=== PATIENT | male | born 1965 | race Caucasian/White ===

== ENCOUNTER 2021-03-08 13:05 | Outpatient (CLI) | payer MEDICARE, SELFPAY | END 2021-03-08 13:06 | disposition home or self-care (01) | LOC: ANHAUDIO 13:08 | PROVIDERS: PCP Internal Medicine; Visit Provider Nurse Practitioner Family | DX: H91.93 Unspecified hearing loss, bilateral (principal) | CPT/HCPCS: 92557; 92567 ==

== ENCOUNTER 2022-08-24 08:44 | Observation (INO) | payer MEDICARE, SELFPAY ==
[2022-08-24] VITALS (21 sets, daily range): BP systolic 147–187; BP diastolic 84–99; PULSE 71–104; RESP 12–22; TEMP 36.2–36.9; O2SAT 94–97; BMI 41.5
--- NOTE | ~2022-08-24 | CT_ITS ---
EXAMINATION: CT brain wo con DATE: 08/24/2022 09:03 INDICATION: Altered mental status. TECHNIQUE: Computed tomography (CT) of the head was performed without intravenous contrast. The mA wa s adjusted according to patient size. Iterative reconstruction technique was employed. The dose-lengt h product was 681.00 mGy-cm. COMPARISON: Head CT 05/06/2013 FINDINGS: There is no intracranial hemorrhage, acute infarction, or abnormal intracranial mass lesion . The ventricles are normal in size. There is mucosal thickening in the paranasal sinuses. The orbits are normal. The mastoid air cells are normal. IMPRESSION: 1. Normal brain. Reviewed, dictated and finalized at location A. IMPRESSION: 1. Normal brain.
--- NOTE | ~2022-08-24 | CT_ITS ---
EXAMINATION: CTA brain carotid DATE: 08/24/2022 10:16 INDICATION: Stroke. Altered mental status. TECHNIQUE: Computed tomographic angiography (CTA) of the head was performed with 175 mL Omnipaque-350 intravenous contrast. CTA of the neck was performed with intravenous contrast. Automated exposure co ntrol and iterative reconstruction technique were employed. The dose-length product was 2599.53 mGy-c m. Maximum intensity projection and volume rendered 3D-reconstructions were created by the technologi st on a separate workstation. COMPARISON: Head CT 08/24/2022 FINDINGS: HEAD CTA: There is no intracranial hemorrhage, acute infarction, or abnormal intracranial mass lesion . The ventricles are normal in size. There is mucosal thickening in the paranasal sinuses. The orbits are normal. The mastoid air cells are normal. The vertebral arteries are codominant. There is no sig nificant stenosis of basilar artery or the posterior cerebral arteries. There is no significant steno sis of the intracranial internal carotid arteries or anterior or middle cerebral arteries. Anterior c ommunicating artery is normal. The posterior communicating arteries are normal. There is no aneurysm. NECK CTA: There are no pathologically enlarged lymph nodes. There is no significant stenosis in the v ertebral arteries. There is mild plaque in proximal right internal carotid artery. There is 0% steno sis of the proximal right internal carotid artery relative to normal distal artery lumen diameter (NA SCET criteria). There is 0% stenosis of the proximal left internal carotid artery relative to normal distal artery lumen diameter. There is moderate cervical spondylosis. IMPRESSION: 1. Normal brain. No aneurysm or significant intracranial calcinosis. 2. 0% stenosis of the proximal internal carotid arteries relative to normal distal artery lumen diame ters (NASCET criteria). Reviewed, dictated and finalized at location A. IMPRESSION: 1. Normal brain. No aneurysm or significant intracranial calcinosis. 2. 0% stenosis of the proximal internal carotid arteries relative to normal dis arsenio artery lumen diameters (NASCET criteria).
--- NOTE | ~2022-08-24 | US_ITS ---
EXAMINATION: US carotid duplex BI DATE: 08/25/2022 13:51 INDICATION: Altered mental status. TECHNIQUE: Grayscale, color Doppler, and pulsed Doppler images of the cervical carotid arteries were obtained. The degree of vessel stenosis is placed in one of the following categories: normal, <50%, 5 0-69%, >=70% but less than near-occlusion, near-occlusion, or total occlusion. Note that percent sten osis relative to normal distal artery lumen diameter is indirectly measured from velocity measurement s as described by Pool, et al. Radiology 2003; 229:340-346. COMPARISON: None. FINDINGS: RIGHT: The right common carotid artery (CCA) peak systolic velocity (PSV) is 74 cm/s. The right internal car otid artery (ICA) PSV is 62 cm/s. The right ICA end-diastolic velocity (EDV) is 24 cm/s. The right IC A/CCA PSV ratio is 0.8. Grayscale and color Doppler images yield an estimate of 0% diameter reduction from plaque in the ICA. There is antegrade flow in the right vertebral artery. LEFT: The left CCA PSV is 93 cm/s. The left ICA PSV is 72 cm/s. The left ICA EDV is 30 cm/s. The left ICA/C CA PSV ratio is 0.8. Grayscale and color Doppler images yield an estimate of 0% diameter reduction fr om plaque in the ICA. There is antegrade flow in the left vertebral artery. IMPRESSION: 1. <50% stenosis in the right internal carotid artery. 2. <50% stenosis in the left internal carotid artery. Reviewed, dictated and finalized at location A.
--- NOTE | ~2022-08-24 | MR_ITS ---
EXAMINATION: MR brain/brain stem wo/w con DATE: 08/25/2022 11:33 INDICATION: Altered mental status. TECHNIQUE: Magnetic resonance imaging (MRI) of the brain and brainstem was performed without and with 20 mL MultiHance intravenous contrast. COMPARISON: Brain MRI 05/07/2013, head CT 08/24/2022 FINDINGS: There is no intracranial hemorrhage, acute infarction, or abnormal intracranial mass lesion . The ventricles are normal in size. The orbits are normal. There is a mucous retention cyst in left maxillary sinus. There is a trace left mastoid effusion. IMPRESSION: 1. Normal brain. Reviewed, dictated and finalized at location A. IMPRESSION: 1. Normal brain.
--- NOTE | ~2022-08-24 | US_ITS ---
EXAMINATION: US retroperitoneal duplex ltd DATE: 08/25/2022 13:50 INDICATION: Hypertension. TECHNIQUE: Multiple grayscale, color Doppler, and pulsed Doppler images of the kidneys and renal nandini harry were obtained. COMPARISON: CT abdomen 08/24/2022 FINDINGS: The aorta peak systolic velocity is 85 cm/s. Right kidney measures 14.9 x 5.8 x 7.1 cm. Left kidney m easures 12.9 x 5.7 x 5.9 cm. No hydronephrosis. The right renal artery peak systolic velocity is 64 c m/s. The left renal artery peak systolic velocity is 62 cm/s. IMPRESSION: 1. No Doppler evidence of renal artery stenosis. Reviewed, dictated and finalized at location A.
--- NOTE | ~2022-08-24 | XR_ITS ---
EXAMINATION: XR chest 1V portable DATE: 08/24/2022 09:17 INDICATION: Altered mental status. TECHNIQUE: A single frontal view of the chest was obtained. COMPARISON: Chest 2 views 01/05/2019, chest CT 08/14/2018 FINDINGS: The chest demonstrates clear lungs without pneumonia, pleural effusion, or pneumothorax. Th e heart size is normal. IMPRESSION: 1. No acute cardiopulmonary disease. Reviewed, dictated and finalized at location A.
--- NOTE | ~2022-08-24 | CT_ITS ---
EXAMINATION: CTA chest abdomen DATE: 08/24/2022 10:17 INDICATION: Chest pain. TECHNIQUE: Computed tomographic angiography (CTA) of the chest and abdomen was performed with 175 mL Omnipaque-350 intravenous contrast. Automated exposure control and iterative reconstruction technique were employed. The dose-length product was 1380.38 mGy-cm. Maximum intensity projection 3D-reconstru ctions of the aorta and other arteries were constructed by the technologist on a separate workstation . COMPARISON: Chest CT 08/14/2018, CT abdomen and pelvis 06/03/2006 FINDINGS: CHEST CTA: The lungs demonstrate mild atelectasis. No pleural effusion. The heart size is normal. No pericardial effusion. There is mild mediastinal lymphadenopathy, likely reactive. There is mild aortic atheroscl erosis. No aneurysm or dissection. There is mild thoracic spondylosis. There are bridging endplate os teophytes at multiple levels in the spine, consistent with diffuse idiopathic skeletal hyperostosis ( DISH). ABDOMEN CTA: The liver, gallbladder, spleen, pancreas, adrenal glands, and kidneys are normal. There is an umbilic al hernia containing fat. There are changes of ventral hernia repair. There are no dilated loops of b owel. The appendix is normal. There are no pathologically enlarged lymph nodes. There is no free intr aperitoneal fluid. There is mild aortic atherosclerosis. No aneurysm or dissection. There is no signi ficant stenosis of celiac axis, superior mesenteric artery, or left renal artery. Right renal artery is not well evaluated due to suboptimal contrast opacification and motion artifact. There is mild lum bar spondylosis. IMPRESSION: 1. Mild aortic atherosclerosis. No aneurysm or dissection. 2. Recurrent umbilical hernia containing fat. Reviewed, dictated and finalized at location A.
--- NOTE | 2022-08-24 08:39 | ED.AMS ---
HPI - Altered Mental Status General Chief Complaint: Altered Mental Status Stated Complaint: Altered mental status History of Present Illness HPI narrative: Patient is an approximately 54-year-old male presenting with altered mental status. History is largely obtained from EMS due to altered mental status. Patient reportedly woke from sleep and seemed altered. His noticed that he was leaning to the right and would sometimes become minimally responsive. EMS was called and noticed right-sided leaning as well as some nystagmus. Patient was hypertensive in the 190s over 130s. On arrival, patient is alert and oriented to self. He follows commands in all 4 extremities. He is altered. Further history is limited secondary to clinical condition. Related Data Home Medications Medication Instructions Recorded Confirmed allopurinol 300 mg tablet 600 mg PO DAILY 01/04/19 08/24/22 buspirone 10 mg tablet 10 mg PO BID 01/04/19 08/24/22 divalproex 250 mg tablet,delayed 250 mg PO Q12H 01/04/19 08/24/22 release famotidine 40 mg tablet 40 mg PO DAILY 01/04/19 08/24/22 fenofibrate 120 mg tablet 134 mg PO DAILY 01/04/19 08/24/22 fluoxetine 40 mg capsule 40 mg PO DAILY 01/04/19 08/24/22 loratadine 10 mg tablet (Claritin) 10 mg PO DAILY 01/04/19 08/24/22 losartan 100 1 tablet PO DAILY 01/04/19 08/24/22 mg-hydrochlorothiazide 12.5 mg tablet montelukast 10 mg tablet 10 mg PO HS 01/04/19 08/24/22 albuterol sulfate 90 mcg/actuation 2 puff inhalation Q4H PRN Wheezing 08/24/22 08/24/22 aerosol inhaler aspirin 325 mg tablet 325 mg PO DAILY 08/24/22 08/24/22 baclofen 10 mg tablet 10 mg PO BID 08/24/22 08/24/22 budesonide-formoterol HFA 160 2 puff inhalation BID 08/24/22 08/24/22 mcg-4.5 mcg/actuation aerosol inhaler (Symbicort) glipizide 10 mg tablet, extended 10 mg PO DAILY 08/24/22 08/24/22 release 24 hr insulin degludec 100 unit/mL (3 30 unit subcut DAILY 08/24/22 08/24/22 mL) subcutaneous pen (Tresiba FlexTouch U-100 insulin) meloxicam 15 mg tablet 15 mg PO DAILY 08/24/22 08/24/22 metformin 500 mg tablet,extended 1,000 mg PO BID 08/24/22 08/24/22 release 24 hr pantoprazole 40 mg tablet,delayed 40 mg PO DAILY 08/24/22 08/24/22 release rosuvastatin 40 mg tablet 40 mg PO DAILY 08/24/22 08/24/22 silver sulfadiazine 1 % topical 1 applic topical DAILY 08/24/22 08/24/22 cream (Silvadene) sulfamethoxazole 400 2 tablet PO BID 08/24/22 08/24/22 mg-trimethoprim 80 mg tablet (Bactrim) tiotropium bromide 2.5 2 puff inhalation DAILY 08/24/22 08/24/22 mcg/actuation mist for inhalation Allergies Allergy/AdvReac Type Severity Reaction Status Date / Time No Known Allergies Allergy Mild Verified 01/04/19 23:10 Review of Systems Review of Systems: ROS unobtainable: Yes unobtainable due to medical condition PMFSH Past Medical History Medical History Arthritis Bronchitis Emphysema of lung Fractures lt knee Gout Hemorrhoids Hypertension Hypoglycemia Kidney stones Melena Pneumonia Sleep apnea Surgical History Surgical History H/O elbow surgery rt elbow for debris removal History of hernia repair History of knee surgery bilateral meniscus tear repair Hx of tonsillectomy Hx of total knee arthroplasty right Status post left partial knee replacement Family History Family History Father Acute myocardial infarction Mother Hypertension Diabetes mellitus Mother Diabetes mellitus Grandparent Diabetes mellitus Cerebrovascular accident Daughter WPW (Lormf-Ywieprxtk-Cfzjs syndrome) Social History Social History (Updated 08/24/22 @ 17:10 by Anneliese Lopez NP) Social History: The patient lives with his and has twin daughters. He is disabled due to his emphysema. The patient worked at a [employer]. He is a former smoker.
--- NOTE | 2022-08-24 08:40 | ECHO_ITS ---
Measurements Intervals [place] Rate: 85 P: 51 OR: 194 QRS: 9 QRSD: 107 T: 7 QT: 379 QTc: 453 Interpretive Statements SINUS RHYTHM WITH SINUS ARRHYTHMIA DELAYED PRECORDIAL R/S TRANSITION LOW QRS VOLTAGE IN PRECORDIAL LEADS BASELINE WANDER- II, V1-V4 BORDERLINE ECG COMPARED TO ECG 01/05/2019 11:11:30 SINUS ARRHYTHMIA NOW PRESENT Electronically Signed On 08-25-2022 7:22:30 CDT by Ashu FARLEY
[2022-08-24 09:03] LABS: Basophils Percent Auto 0.5 % (0.2-1.2); Eosinophils Absolute Auto 0.3 K/mm3 (0-0.3); Eosinophils Percent Auto 3.5 % (0-4.4); Hematocrit 43.7 % (42.0-52.0); Immature Granulocyte Absolute 0.02 K/mm3 (0.00-0.031); Immature Granulocyte Percent A 0.3 % (0-0.5); Lymphocytes Absolute Auto 1.18 K/mm3 (0.9-3.2); Lymphocytes Percent Auto 15.2 % (18.3-44.2); Mean Corpuscular Hemoglobin 30.7 pg (26-34); Mean Corpuscular Volume 95.8 fl (80-100); Mean Platelet Volume 10.7 fl (7.4-10.4); Monocytes Absolute Auto 0.6 K/mm3 (0.1-0.6); Monocytes Percent Auto 7.5 % (2.6-8.5); Neutrophils Absolute Auto 5.7 K/mm3 (1.3-6.7); Platelet Count Result 189 k/mm3 (150-375); Red Blood Count 4.56 M/mm3 (4.6-6.20); Red Cell Distribution Width 13.4 % (11.5-14.5); White Blood Count 7.8 K/mm3 (4.5-10.0)
[2022-08-24 09:14] LABS: Partial Thromboplastin Time 28.2 SECONDS (22.3-36.8); Prothrombin Time 13.8 Seconds (11.1-14.7)
[2022-08-24 09:15] LABS: Lactic Acid Reflex 1.6 mmol/L (0.7-2.0)
[2022-08-24 09:16] LABS: Alanine Aminotransferase 56 U/L (6-50); Albumin Level 4.5 g/dL (3.5-5.1); Alkaline Phosphatase 69 U/L (38-126); Anion Gap 12 mmol/L (8-16); Aspartate Amino Transferase 68 U/L (17-59); Bilirubin,Total 0.4 mg/dL (0.2-1.3); Blood Urea Nitrogen 37 mg/dL (9-20); Calcium 9.5 mg/dL (8.4-10.2); Carbon Dioxide 24 mmol/L (22-30); Chloride 111 mmol/L (98-107); Estimated Glomerular Filt Rate 31; Glucose 204 mg/dL (65-110); Potassium 4.4 mmol/L (3.4-5.0); Sodium 147 mmol/L (137-145)
[2022-08-24 09:28] LABS: Troponin I < 0.012 ng/mL (0.000-0.034)
[2022-08-24 10:02] LABS: Creatine Kinase 398 U/L (55-170)
--- NOTE | 2022-08-24 10:40 | PC.NURSE ---
pt becoming agitated, states he has to urinate. attempting to get up off bed. staff able to keep pt in bed with verbal guidance. attempted to use urinal with no success. pt still agitated. edp aware and at bedside
[2022-08-24] MEDS: SODIUM CHLORIDE 0.9% IV 1,000 ML 999 ML IV CONT (10:53)
[2022-08-24] MEDS: LORazepam INJ (*CRX) 2 MG/ML VIAL 1 MG IV PUSH (10:53)
[2022-08-24] MEDS: ALBUTEROL SULFATE NEB 2.5 MG/3 ML INH 5 MG INHALATION (11:02)
[2022-08-24] MEDS: IPRATROPIUM BR 0.02% INH SOLN 0.5 MG/2.5 ML VIAL INHALATION ×2 (11:02→20:55)
[2022-08-24 11:12] LABS: Appearance Urine Clear (Clear); Bacteria Urine None Seen /hpf; Bilirubin Urine Negative (Negative); Blood Urine Negative (Negative); Color Urine Yellow (Yellow); Glucose Urine UA 1+ mg/dL (Negative); Hyaline Casts Urine Present /lpf; Ketones Urine Trace mg/dL (Negative); Leukocyte Esterase Ur Negative LEU/UL (Negative); Nitrate Urine Negative (Negative); Protein Urine 1+ mg/dL (Negative); RBC Urine 0-2 /hpf (0-2); Specific Grav Ur 1.023 (1.001-1.035); Squamous Epithelial Cell Urine None seen /hpf (Few); WBC Urine 0-5 /hpf; pH Urine 6.5 (5.0-9.0)
[2022-08-24 11:15] LABS: Add Urine Microscopic? YES
[2022-08-24 11:20] LABS: Ammonia 20 umol/L (9-30)
[2022-08-24 11:23] LABS: Amphetamine Screen Urine Negative (Negative); Barbiturate Screen Urine Negative (Negative); Benzodiazepines Screen Urine Negative (Negative); Cannabinoid Screen Urine Negative (Negative); Cocaine Screen Urine Negative (Negative); Methadone Screen Urine Negative (Negative); Opiate Screen Urine Negative (Negative); Phencyclidine Screen Urine Negative (Negative)
[2022-08-24 11:26] LABS: Alveolar/Arterial O2 Gradient 66.5 mmHg; Base Excess ABG -2.8 mEq/l (+/-2.0); Fractional Inspired Oxygen 28 %; HCO3 ABG 22.8 mEq/l (22.0-26.0); Oxygen Content ABG 18.8 %vol (16.0-22.0); Oxygen Saturation ABG 95.7 % (95.0-100.0); Oxyhemoglobin 93.8 % THb (90.0-100.0); PCO2 ABG 42.4 mmHg (35.0-45.0); PO2 ABG 83.1 mmHg (80.0-100.0); PO2 FiO2 Ratio Arterial Blood 2.97 %; Total Hemoglobin 14.2 g/dL (12.0-18.0); pH ABG 7.348 (7.350-7.450)
[2022-08-24 11:28] LABS: Device NASAL CANNULA; Modified Allen's Test Pass; Site Drawn LEFT RADIAL
--- NOTE | 2022-08-24 12:10 | ADMGEN ---
This patient, Zane Noland, was admitted to IMU Room 232-01 at 1155. Patient/family oriented to hospital policies and general routines including ID bracelet, bed and alarms, visiting hours, pain management, procedures, bathroom and other care routines, personal items, smoking policy, room service/diet, and visiting hours. Information on how to activate the Rapid Response Team has been discussed. Patient/Family are encouraged to report perceived risks to care and to ask questions if they do not understand what they are told or what they should do.
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
--- NOTE | 2022-08-24 17:13 | ECG_ITS ---
Measurements Intervals [place] Rate: 85 P: 51 AL: 194 QRS: 9 QRSD: 107 T: 7 QT: 379 QTc: 453 Interpretive Statements SINUS RHYTHM WITH SINUS ARRHYTHMIA DELAYED PRECORDIAL R/S TRANSITION LOW QRS VOLTAGE IN PRECORDIAL LEADS BASELINE WANDER- II, V1-V4 BORDERLINE ECG COMPARED TO ECG 01/05/2019 11:11:30 SINUS ARRHYTHMIA NOW PRESENT Electronically Signed On 08-25-2022 7:22:30 CDT by Ashu Medrano D.O.
[2022-08-24 17:33] LABS: Alveolar/Arterial O2 Gradient 31.7 mmHg; Base Excess ABG -0.1 mEq/l (+/-2.0); Fractional Inspired Oxygen 21 %; HCO3 ABG 23.7 mEq/l (22.0-26.0); Oxygen Content ABG 19.4 %vol (16.0-22.0); Oxygen Saturation ABG 95.5 % (95.0-100.0); Oxyhemoglobin 94.2 % THb (90.0-100.0); PCO2 ABG 36.2 mmHg (35.0-45.0); PO2 ABG 74.7 mmHg (80.0-100.0); PO2 FiO2 Ratio Arterial Blood 3.56 %; Total Hemoglobin 14.6 g/dL (12.0-18.0); pH ABG 7.434 (7.350-7.450)
[2022-08-24] MEDS: SILVER SULFADIAZINE 1% CR 400 GM JAR (*BKC) 1 APPLIC TOPICAL (17:34)
[2022-08-24] MEDS: SODIUM CHLORIDE 0.9% IV 1,000 ML 100 ML IV CONT (17:34)
[2022-08-24 17:35] LABS: Modified Allen's Test Pass; Site Drawn LEFT RADIAL
[2022-08-24 17:36] LABS: CPAP 18 cmH2O; Device CPAP
[2022-08-24 17:58] LABS: Glucose Point of Care 226 mg/dl (65-105)
[2022-08-24 18:10] LABS: Anion Gap 9 mmol/L (8-16); Blood Urea Nitrogen 31 mg/dL (9-20); Calcium 9.4 mg/dL (8.4-10.2); Carbon Dioxide 25 mmol/L (22-30); Chloride 111 mmol/L (98-107); Estimated CRCL calculation 66 ml/min; Estimated Glomerular Filt Rate 45; Glucose 217 mg/dL (65-110); Potassium 4.3 mmol/L (3.4-5.0); Sodium 145 mmol/L (137-145)
[2022-08-24] MEDS: INSULIN ASPART (*BKC) 100 UNITS/ML SUB-Q ×2 (18:25→23:18)
[2022-08-24] MEDS: CEFEPIME 1 GM/NS 50 ML 1 GM/50 ML BAG IVPB (18:25)
[2022-08-24] MEDS: methylPREDNISolone SOD SUCC 40 MG VIAL IV PUSH (18:25)
[2022-08-24] MEDS: VANCOMYCIN 1,250 MG/NS 250 ML 1,250 MG/250 ML BAG 166.67 MG IVPB ×2 (18:43→21:13)
[2022-08-24 20:34] LABS: Glucose Point of Care 216 mg/dl (65-105)
[2022-08-24] MEDS: ALBUTEROL SULFATE NEB 2.5 MG/3 ML INH INHALATION (20:55)
[2022-08-24] MEDS: FLUTICASONE/SALMETEROL 115-21 MCG INHALER 1 PUFF 2 PUFF INHALATION (21:15)
[2022-08-24] MEDS: FAMOTIDINE 20 MG/2 ML VIAL IV PUSH (21:16)
[2022-08-24] MEDS: hydrALAZINE HCL 20 MG/ML VIAL 10 MG IV PUSH (21:19)
[2022-08-24] MEDS: HEPARIN SODIUM 5,000 UNITS/ML VIAL 5000 UNITS SUB-Q (21:21)
[2022-08-24 22:21] LABS: Troponin I < 0.012 ng/mL (0.000-0.034)
[2022-08-24] MEDS: metroNIDAZOLE 500 MG/ISO 100ML 500 MG/100 ML BAG 100 MG IVPB (23:01)
[2022-08-24 23:19] LABS: Glucose Point of Care 284 mg/dl (65-105)
[2022-08-25] VITALS (23 sets, daily range): BP systolic 160–189; BP diastolic 87–97; PULSE 66–111; RESP 16–22; TEMP 36.4–38.1; O2SAT 94–99
[2022-08-25] MEDS: METOPROLOL TARTRATE INJ 5 MG/5 ML VIAL IV PUSH (00:06)
[2022-08-25] MEDS: diphenhydrAMINE HCl INJ 50 MG/ML VIAL 25 MG IV PUSH (00:10)
[2022-08-25] MEDS: methylPREDNISolone SOD SUCC 40 MG VIAL IV PUSH ×2 (02:29→09:48)
[2022-08-25] MEDS: IPRATROPIUM BR 0.02% INH SOLN 0.5 MG/2.5 ML VIAL INHALATION ×3 (02:51→14:09)
[2022-08-25] MEDS: ALBUTEROL SULFATE NEB 2.5 MG/3 ML INH INHALATION ×3 (02:51→14:09)
[2022-08-25 03:21] LABS: Creatinine Urine 108.7 mg/dL; Total Protein Urine Random 45 mg/dL; Ur Ttl Prot Creatinine Ratio 0.41 mg/mg (0-0.20); Urea Random Urine 743 MG/DL
[2022-08-25 03:37] LABS: Sodium Urine Random 135 meq/L
[2022-08-25 05:09] LABS: Basophils Percent Auto 0.2 % (0.2-1.2); Hematocrit 44.4 % (42.0-52.0); Hemoglobin 13.8 g/dL (14.0-18.0); Immature Granulocyte Absolute 0.03 K/mm3 (0.00-0.031); Immature Granulocyte Percent A 0.5 % (0-0.5); Lymphocytes Absolute Auto 0.33 K/mm3 (0.9-3.2); Lymphocytes Percent Auto 5.2 % (18.3-44.2); Mean Corpuscular HGB Conc 31.1 g/dl (32-36); Mean Corpuscular Hemoglobin 30.3 pg (26-34); Mean Corpuscular Volume 97.6 fl (80-100); Mean Platelet Volume 10.8 fl (7.4-10.4); Monocytes Absolute Auto 0.1 K/mm3 (0.1-0.6); Monocytes Percent Auto 1.9 % (2.6-8.5); Neutrophils Absolute Auto 5.9 K/mm3 (1.3-6.7); Neutrophils Percent Auto 92.2 % (45.5-73.1); Platelet Count Result 197 k/mm3 (150-375); Red Blood Count 4.55 M/mm3 (4.6-6.20); Red Cell Distribution Width 13.2 % (11.5-14.5); White Blood Count 6.4 K/mm3 (4.5-10.0)
[2022-08-25] MEDS: CEFEPIME 1 GM/NS 50 ML 1 GM/50 ML BAG IVPB ×2 (05:14→17:30)
[2022-08-25] MEDS: HEPARIN SODIUM 5,000 UNITS/ML VIAL 5000 UNITS SUB-Q ×3 (05:15→22:05)
[2022-08-25 05:19] LABS: Alanine Aminotransferase 55 U/L (6-50); Albumin Level 4.7 g/dL (3.5-5.1); Alkaline Phosphatase 71 U/L (38-126); Anion Gap 15 mmol/L (8-16); Aspartate Amino Transferase 58 U/L (17-59); Bilirubin,Total 0.4 mg/dL (0.2-1.3); Blood Urea Nitrogen 29 mg/dL (9-20); Calcium 9.5 mg/dL (8.4-10.2); Carbon Dioxide 23 mmol/L (22-30); Chloride 107 mmol/L (98-107); Creatine Kinase 391 U/L (55-170); Estimated CRCL calculation 70 ml/min; Estimated Glomerular Filt Rate 48; Glucose 296 mg/dL (65-110); Magnesium 1.8 mg/dL (1.6-2.3); Potassium 4.6 mmol/L (3.4-5.0); Sodium 145 mmol/L (137-145)
[2022-08-25 05:23] LABS: Lactic Acid Reflex 2.9 mmol/L (0.7-2.0)
[2022-08-25 05:36] LABS: Eosinophil Urine None Seen % (None Seen); Urine Eos QC 2nd Tech Confirmed
[2022-08-25 05:52] LABS: Hemoglobin A1C 8.1 % (<5.7)
[2022-08-25] MEDS: INSULIN ASPART (*BKC) 100 UNITS/ML SUB-Q ×3 (06:07→18:32)
[2022-08-25] MEDS: metroNIDAZOLE 500 MG/ISO 100ML 500 MG/100 ML BAG 100 MG IVPB ×3 (06:07→22:06)
[2022-08-25] MEDS: FLUTICASONE/SALMETEROL 115-21 MCG INHALER 1 PUFF 2 PUFF INHALATION ×2 (07:55→20:40)
[2022-08-25 08:05] LABS: Reflex Lactic Acid Yes or No Add Lactic
[2022-08-25 08:52] LABS: Lactic Acid 1.8 mmol/L (0.7-2.0)
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
[2022-08-25] MEDS: SODIUM CHLORIDE 0.9% IV 1,000 ML 100 ML IV CONT (09:44)
[2022-08-25] MEDS: SILVER SULFADIAZINE 1% CR 400 GM JAR (*BKC) 1 APPLIC TOPICAL (09:47)
[2022-08-25] MEDS: FAMOTIDINE 20 MG/2 ML VIAL IV PUSH ×2 (09:48→20:07)
[2022-08-25 12:23] LABS: Glucose Point of Care 302 mg/dl (65-105)
--- NOTE | 2022-08-25 15:59 | WPDNEURCNPN ---
Assessment and Plan Assessment and plan (1) Stage 3a chronic kidney disease: Code(s): N18.31 - Chronic kidney disease, stage 3a Status: Chronic (2) Altered mental status: Code(s): R41.82 - Altered mental status, unspecified Status: Acute (3) Acute on chronic renal failure: Code(s): N17.9 - Acute kidney failure, unspecified; N18.9 - Chronic kidney disease, unspecified Status: Acute (4) COPD (chronic obstructive pulmonary disease): Code(s): J44.9 - Chronic obstructive pulmonary disease, unspecified Status: Acute (5) Hypertension: Qualifiers: Hypertension type: essential hypertension Qualified Code(s): I10 - Essential (primary) hypertension Code(s): I10 - Essential (primary) hypertension Status: Acute (6) Diabetes mellitus: Qualifiers: Diabetes mellitus type: type 2 Diabetes mellitus half-way insulin use: without safety deposit clerk use Diabetes mellitus complication status: without complication Qualified Code(s): E11.9 - Type 2 diabetes mellitus without complications Code(s): E11.9 - Type 2 diabetes mellitus without complications Status: Chronic Plan Considering the sudden change in the mental status and as per the description of the will simply rule out the possibility of seizure and obtain the EEG though other diagnosis are more likely. EEG be done tomorrow and will discuss with the family further. Consult date: 08/25/22 HPI: Zane Noland is a 57 year old male Admitted to the hospital through the emergency room for the complaints of change in the mental status patient reportedly woke from sleep and seemed altered his made the observation that he was leaving to the right and will sometimes become minimally responsive. EMS were called who confirm the leaning to the right side as well along with the nystagmus in addition to the history of hypertension though at the time of arrival subsequently he was awake alert and oriented to himself. Multiple medications have been documented including Depakote 250 mg q.12 hours losartan 100 mg daily, aspirin 325 mg daily, insulin accordingly, with metformin regularly, and rosuvastatin 40 mg daily, patient does have ongoing history of emphysema of the lung, gout, hypertension, and sleep apnea, he is a former smoker, and initial exam documented him to have some difficulties in following verbal commands vital signs was blood pressure 173/89 labs normal except blood sugar of 296 CT of the head negative chest negative CTA of the head and neck negative mild as aortic atherosclerosis but no aneurysm or dissection or CTA of the chest, seen by lead vulcanizing operator for acute kidney injury with documentation of stage IIIA chronic kidney disease [facility] Past Medical History Medical History (Updated 08/25/22 @ 16:07 by Moses Cervantes MD) Arthritis Bronchitis Emphysema of lung Fractures lt knee Gout Hemorrhoids Hypertension Hypoglycemia Kidney stones Melena Pneumonia Seizures Sleep apnea Surgical History Surgical History H/O elbow surgery rt elbow for debris removal History of hernia repair History of knee surgery bilateral meniscus tear repair Hx of tonsillectomy Hx of total knee arthroplasty right Status post left partial knee replacement Family History Family History Father Acute myocardial infarction Mother Hypertension Diabetes mellitus Mother Diabetes mellitus Grandparent Diabetes mellitus Cerebrovascular accident Daughter WPW ([id number] syndrome) Social History Social History (Updated 08/24/22 @ 17:10 by Anneliese Lopez NP) Social History: The patient lives with his and has twin daughters. He is disabled due to his emphysema. The patient worked at a [employer]. He is a former smoker. His is the durable power trial attorney for healthcare. Josh
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
[2022-08-25 18:01] LABS: Glucose Point of Care 340 mg/dl (65-105)
[2022-08-25] MEDS: hydrALAZINE HCL 20 MG/ML VIAL 10 MG IV PUSH (18:32)
[2022-08-25] MEDS: ACETAMINOPHEN 325 MG TABLET 650 MG PO (20:11)
[2022-08-25] MEDS: INSULIN GLARGINE (*BKC) 100 UNITS/ML 15 UNITS SUB-Q (20:14)
[2022-08-25 20:27] LABS: Glucose Point of Care 340 mg/dl (65-105)
[2022-08-25 23:44] LABS: Glucose Point of Care 229 mg/dl (65-105)
[2022-08-26] VITALS (12 sets, daily range): BP systolic 154–176; BP diastolic 84–99; PULSE 70–92; RESP 14–22; TEMP 35.8–37.3; O2SAT 92–99
--- NOTE | 2022-08-26 | ECHO_ITS ---
Patient Info Name: Zane Noland Age: 57 years : 1965 Gender: Male Ht: 72 in Wt: 306 lbs BSA: 2.72 m2 HR: 79 bpm BP: 173 / 99 mmHg Heart Rhythm: Sinus Rhythm Technical Quality: Fair Exam Date: 08/26/2022 1:16 PM Exam Location: [facility] Patient Status: Inpatient Admit Date: 08/24/2022 Staff Ordering Physician: Anneliese Lopez NP Knife Glazer: Juli Alvarez RDCS Attending Provider: Nikolas Martins MD Referring Physician: John NICHOLSON; Exam Type: CA echo doppler w bubble study Study Info Indications - TIA Complete two-dimensional, color flow and Doppler transthoracic echocardiogram is performed with agitated saline. Contrast/Agitated Saline Contrast/Ag. Saline: Agitated Saline Amount: 30.00 ml Existing IV Access: Yes IV Access Condition: patent with no signs of infiltration Summary 1. Technically somewhat challenging exam because of obesity. 2. Normal appearing left and right ventricular systolic function. 3. No valvular dysfunction. 4. Agitated saline contrast injection does not show any evidence of intracardiac shunt. Left Ventricle Left ventricular chamber dimension is normal. Left ventricular systolic function is normal, estimated at 60-65%. The left ventricular diastolic function is grade I diastolic dysfunction. Right Ventricle Right ventricular chamber dimension is normal. Left Atria Left atrial chamber dimension is normal. Right Atria Right atrial chamber dimension is normal. Atrial Septum Intact interatrial septum visualized by agitated saline imaging. Aortic Valve The aortic valve is normal. Pulmonic Valve The pulmonic valve is not well visualized. Mitral Valve The mitral valve has normal leaflets. Tricuspid Valve The tricuspid valve leaflets are normal. Pericardium/Pleural The pericardium appears normal. Aorta The aortic root size at the sinus of Valsalva is normal. Left Ventricular Outflow Tract Name Value Normal LVOT 2D LVOT Diameter 2.0 cm LVOT Doppler LVOT Peak Gradient 6 mmHg LVOT Mean Gradient 3 mmHg LVOT VTI 22 cm LVOT VTI/AV VTI Ratio 0.7 LVOT Stroke Volume 68 ml LVOT CO 5.7 l/min LVOT CI 2.1 l/min/m2 Pulmonic Valve Name Value Normal RVOT Doppler RVOT Peak Gradient 2 mmHg PV Doppler PV Peak Gradient 5 mmHg Mitral Valve Name Value Normal MV Doppler MV Decel
[2022-08-26] MEDS: INSULIN ASPART (*BKC) 100 UNITS/ML SUB-Q ×4 (00:38→22:03)
[2022-08-26] MEDS: CEFEPIME 1 GM/NS 50 ML 1 GM/50 ML BAG IVPB ×2 (04:39→17:56)
[2022-08-26] MEDS: ACETAMINOPHEN 325 MG TABLET 650 MG PO (04:40)
[2022-08-26] MEDS: hydrALAZINE HCL 20 MG/ML VIAL 10 MG IV PUSH (04:41)
[2022-08-26 06:38] LABS: Glucose Point of Care 193 mg/dl (65-105)
[2022-08-26] MEDS: SODIUM CHLORIDE 0.9% IV 1,000 ML 50 ML IV CONT (06:48)
[2022-08-26] MEDS: HEPARIN SODIUM 5,000 UNITS/ML VIAL 5000 UNITS SUB-Q ×3 (06:49→22:03)
[2022-08-26] MEDS: metroNIDAZOLE 500 MG/ISO 100ML 500 MG/100 ML BAG 100 MG IVPB ×2 (06:50→14:57)
[2022-08-26 08:05] LABS: Basophils Percent Auto 0.4 % (0.2-1.2); Eosinophils Percent Auto 0.1 % (0-4.4); Hematocrit 45.4 % (42.0-52.0); Hemoglobin 14.5 g/dL (14.0-18.0); Immature Granulocyte Absolute 0.01 K/mm3 (0.00-0.031); Immature Granulocyte Percent A 0.1 % (0-0.5); Lymphocytes Percent Auto 18.6 % (18.3-44.2); Mean Corpuscular HGB Conc 31.9 g/dl (32-36); Mean Corpuscular Hemoglobin 30.9 pg (26-34); Mean Corpuscular Volume 96.6 fl (80-100); Mean Platelet Volume 10.5 fl (7.4-10.4); Monocytes Absolute Auto 0.4 K/mm3 (0.1-0.6); Monocytes Percent Auto 5.7 % (2.6-8.5); Neutrophils Absolute Auto 5.3 K/mm3 (1.3-6.7); Neutrophils Percent Auto 75.1 % (45.5-73.1); Platelet Count Result 221 k/mm3 (150-375); Red Cell Distribution Width 13.6 % (11.5-14.5)
[2022-08-26] MEDS: FLUTICASONE/SALMETEROL 115-21 MCG INHALER 1 PUFF 2 PUFF INHALATION ×2 (08:09→22:35)
[2022-08-26 08:20] LABS: Alanine Aminotransferase 46 U/L (6-50); Albumin Level 4.6 g/dL (3.5-5.1); Alkaline Phosphatase 54 U/L (38-126); Anion Gap 9 mmol/L (8-16); Aspartate Amino Transferase 64 U/L (17-59); Bilirubin,Total 0.7 mg/dL (0.2-1.3); Blood Urea Nitrogen 30 mg/dL (9-20); CRP < 0.5 mg/dL (<1.0); Calcium 9.4 mg/dL (8.4-10.2); Carbon Dioxide 23 mmol/L (22-30); Chloride 105 mmol/L (98-107); Estimated CRCL calculation 94 ml/min; Estimated Glomerular Filt Rate > 60; Glucose 208 mg/dL (65-110); Magnesium 1.6 mg/dL (1.6-2.3); Phosphorus 3.7 mg/dL (2.5-4.5); Potassium 4.2 mmol/L (3.4-5.0); Sodium 137 mmol/L (137-145)
[2022-08-26 08:43] LABS: Vancomycin Trough 9.2 ug/mL (10.0-20.0)
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
[2022-08-26] MEDS: FAMOTIDINE 20 MG/2 ML VIAL IV PUSH (09:42)
--- NOTE | 2022-08-26 09:54 | PCSTNOTE ---
Please refer to the Bedside Swallow Evaluation in the EMR. Please note, silent aspiration cannot be ruled out at bedside.
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
[2022-08-26] MEDS: SILVERGEL (ELTA) 45 ML 1 APPLIC TOPICAL (11:25)
[2022-08-26] MEDS: DIVALPROEX SODIUM DR 250 MG TABEC PO ×2 (12:02→22:18)
[2022-08-26] MEDS: FLUoxetine HCL 20 MG CAPSULE 40 MG PO (12:03)
[2022-08-26] MEDS: PANTOPRAZOLE 40 MG TABLET PO (12:03)
[2022-08-26] MEDS: busPIRone HCL 10 MG TABLET PO ×2 (12:03→17:57)
[2022-08-26] MEDS: ASPIRIN 325 MG TABLET PO (12:04)
--- NOTE | 2022-08-26 12:30 | WPDNEUROPN ---
Subjective Date/time seen: 08/26/22 12:30 Interval history: Remains awake alert with no evidence of change in the mental status EEG was reviewed he does not show any paroxysmal activity most likely his changes in the mental status was related to medical problem but again the possibility seizure is likely even if the EEG is normal so at this stage we can hold the anticonvulsant but if it occurs in the future then we will start the medication. Objective Data Vital Signs Vital Signs: Vital Signs - 24 hr 08/25/22 14:10 08/25/22 14:21 08/25/22 14:00 Temperature Pulse Rate 86 82 105 H Respiratory Rate 20 20 Blood Pressure Pulse Oximetry Oxygen Delivery Oxygen Flow Rate Fraction of Inspired Oxygen 08/25/22 16:00 08/25/22 16:00 08/25/22 16:00 Temperature 36.4 C L Pulse Rate 97 97 Respiratory Rate 16 Blood Pressure 180/97 H Pulse Oximetry 99 99 Oxygen Delivery Nasal Cannula Oxygen Flow Rate 2 Fraction of Inspired Oxygen 08/25/22 18:00 08/25/22 20:00 08/25/22 20:42 Temperature 36.5 C Pulse Rate 92 66 88 Respiratory Rate 18 Blood Pressure 186/87 H Pulse Oximetry 96 96 Oxygen Delivery Nasal Cannula Oxygen Flow Rate 2 Fraction of Inspired Oxygen 08/25/22 23:55 08/25/22 20:00 08/25/22 20:00 Temperature 36.6 C Pulse Rate 77 66 89 Respiratory Rate 22 H 18 Blood Pressure 160/92 H Pulse Oximetry 99 96 Oxygen Delivery Nasal Cannula Oxygen Flow Rate 2 Fraction of Inspired Oxygen 08/25/22 22:00 08/26/22 00:00 08/26/22 02:00 Temperature Pulse Rate 82 73 70 Respiratory Rate Blood Pressure Pulse Oximetry Oxygen Delivery Oxygen Flow Rate Fraction of Inspired Oxygen 08/26/22 00:00 08/26/22 04:00 08/26/22 04:00 Temperature 36.6 C Pulse Rate 77 70 70 Respiratory Rate 22 H 22 H 22 H Blood Pressure 173/99 H Pulse Oximetry 99 96 96 Oxygen Delivery CPAP CPAP Oxygen Flow Rate Fraction of Inspired Oxygen 21 21 08/26/22 04:00 08/26/22 05:38 08/26/22 08:10 Temperature Pulse Rate 75 79 85 Respiratory Rate 18 Blood Pressure Pulse Oximetry 96 Oxygen Delivery Room Air Oxygen Flow Rate Fraction of Inspired Oxygen 08/26/22 08:10 08/26/22 08:00 08/26/22 08:00 Temperature 36.4 C L Pulse Rate 85 88 90 Respiratory Rate 18 18 Blood Pressure 154/86 H Pulse Oximetry 95 Oxygen Delivery Oxygen Flow Rate Fraction of Inspired Oxygen 08/26/22 10:00 08/26/22 08:00 Temperature Pulse Rate 83 Respiratory Rate Blood Pressure Pulse Oximetry 92 Oxygen Delivery Oxygen Flow Rate Fraction of Inspired Oxygen Intake/Output Intake/Output: Intake & Output 08/23/22 08/24/22 08/25/22 08/26/22 23:59 23:59 23:59 23:59 Intake Total 1550 3215 550 Output Total 1050 400 Balance 1550 2165 150 Meds/Results Medications: Active Medications Generic Name Dose Route Start Last Admin Trade Name Freq PRN Reason Stop Dose Admin Acetaminophen 650 mg 08/25/22 10:21 08/26/22 04:40 Acetaminophen 325 Mg Tablet PO 650 mg Q6H PRN Administration Mild Pain (1-3) or Fever Albuterol 2.5 mg 08/25/22 18:02 Albuterol Sulfate Neb 2.5 Mg/3 Ml Inh INHALATION Q6HRT PRN Shortness Of Breath Or Wheezing Allopurinol 600 mg 08/27/22 09:00 Allopurinol 300 Mg Tablet PO DAILY JOANNA Aspirin 325 mg 08/26/22 11:00 08/26/22 12:04 Aspirin 325 Mg Tablet PO 325 mg DAILY JOANNA Administration Buspirone HCl 10 mg 08/26/22 11:00 08/26/22 12:03 Buspirone Hcl 10 Mg Tablet PO 10 mg BID JOANNA Administration Dextrose 12.5 gm 08/24/22 14:54 Dextrose 50% 25 Gm/50 Ml Syringe IV PUSH PRN PRN Hypoglycemia Protocol Diltiazem HCl 240 mg 08/25/22 12:40 08/26/22 09:42 Diltiazem Hcl Cd 240 Mg Cap.Er.24h PO 240 mg QAM JOANNA Administration Diphenhydramine HCl 25 mg 08/24/22 17:25 08/25/22 00:10 Diphenhydramine Hcl Inj
[2022-08-26 12:52] LABS: Glucose Point of Care 330 mg/dl (65-105)
[2022-08-26 17:11] LABS: Glucose Point of Care 245 mg/dl (65-105)
--- NOTE | 2022-08-26 19:44 | PC.NURSE ---
This patient, Zane Noland, was transferred to [facility] on 08/26/22 at 1944. Personal belongings sent with patient. Report given to Ioana HERMOSILLO. Appropriate documentation sent with patient.
[2022-08-26 21:29] LABS: Glucose Point of Care 289 mg/dl (65-105)
[2022-08-26] MEDS: INSULIN GLARGINE (*BKC) 100 UNITS/ML 20 UNITS SUB-Q (22:04)
[2022-08-27] VITALS: BP 174/99; PULSE 79; RESP 18; TEMP 36.8; O2SAT 98
[2022-08-27] MEDS: metroNIDAZOLE 500 MG/ISO 100ML 500 MG/100 ML BAG 100 MG IVPB ×2 (02:14→06:43)
[2022-08-27] MEDS: HEPARIN SODIUM 5,000 UNITS/ML VIAL 5000 UNITS SUB-Q (05:45)
[2022-08-27] MEDS: CEFEPIME 1 GM/NS 50 ML 1 GM/50 ML BAG IVPB (05:45)
[2022-08-27] MEDS: hydrALAZINE HCL 20 MG/ML VIAL 10 MG IV PUSH (05:46)
[2022-08-27 06:00] VITALS: BP 163/96; PULSE 89; RESP 18; TEMP 37.3; O2SAT 96
[2022-08-27 07:11] LABS: Albumin Level 4.9 g/dL (3.5-5.1); Anion Gap 15 mmol/L (8-16); Blood Urea Nitrogen 30 mg/dL (9-20); Calcium 9.6 mg/dL (8.4-10.2); Carbon Dioxide 19 mmol/L (22-30); Chloride 102 mmol/L (98-107); Creatine Kinase 249 U/L (55-170); Estimated CRCL calculation 94 ml/min; Estimated Glomerular Filt Rate > 60; Glucose 225 mg/dL (65-110); Phosphorus 3.9 mg/dL (2.5-4.5); Potassium 4.7 mmol/L (3.4-5.0); Sodium 136 mmol/L (137-145)
[2022-08-27 07:20] LABS: Glucose Point of Care 242 mg/dl (65-105)
[2022-08-27] MEDS: busPIRone HCL 10 MG TABLET PO (08:26)
[2022-08-27] MEDS: ASPIRIN 325 MG TABLET PO (08:26)
[2022-08-27] MEDS: allopurinoL 300 MG TABLET 600 MG PO (08:26)
[2022-08-27] MEDS: PANTOPRAZOLE 40 MG TABLET PO (08:27)
[2022-08-27] MEDS: DIVALPROEX SODIUM DR 250 MG TABEC PO (08:27)
[2022-08-27] MEDS: FLUoxetine HCL 20 MG CAPSULE 40 MG PO (08:27)
[2022-08-27] MEDS: FAMOTIDINE 20 MG TABLET 40 MG PO (08:27)
[2022-08-27] MEDS: ROSUVASTATIN 10 MG TABLET 40 MG PO (08:28)
[2022-08-27] MEDS: ACETAMINOPHEN 325 MG TABLET 650 MG PO (08:30)
[2022-08-27] MEDS: INSULIN ASPART (*BKC) 100 UNITS/ML SUB-Q ×2 (08:38→12:05)
[2022-08-27] MEDS: SILVERGEL (ELTA) 45 ML 1 APPLIC TOPICAL (08:45)
--- NOTE | 2022-08-27 09:03 | WPDNEUROLOGY ---
Neurology EEG Report General Information Date of Study: 08/26/22 TEST eeg DIAGNOSIS Possible seizures CONDITION OF RECORDING awake drowsy and sleep EEG NUMBER [id number] CLINICAL HISTORY patient was brought into hospital for confusion and disorientation. Seems to be back to baseline now EEG DESCRIPTION basic resting occipital frequency consists of well-organized low to medium voltage 8 to 9 hertz per 2nd alpha admixed with minimal amount of low-voltage 15 to 18 hertz per 2nd beta. Intermittent EKG artifacts are seen. Low-voltage beta activity seen diffusely admixed with waxing and waning posterior alpha rhythm During drowsiness. hyperventilation not done. Photic stimulation not done. Non paroxysmal. Nonfocal. Nonlateralizing. IMPRESSION Normal record
[2022-08-27] MEDS: FLUTICASONE/SALMETEROL 115-21 MCG INHALER 1 PUFF 2 PUFF INHALATION (09:04)
[2022-08-27 09:13] VITALS: PULSE 99; RESP 20
[2022-08-27 09:14] VITALS: PULSE 99; RESP 20; O2SAT 95
[2022-08-27] MEDS: UMECLIDINIUM BROMIDE 62.5 MCG ELLIPTA 1 PUFF INHALATION (09:40)
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
[2022-08-27 11:18] LABS: Glucose Point of Care 270 mg/dl (65-105)
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
[2022-08-27 14:00] VITALS: BP 178/93; PULSE 97; RESP 24; TEMP 35.5; O2SAT 98
== END 2022-08-27 14:50 | disposition home or self-care (01) ==
LOC: ANHED 09:19 → ANHIMU 11:55 → ANH3MEDSUR 08-27 14:05 → ANHIMU 08-28 10:22
PROVIDERS: Internal Medicine Nephrology; Nurse Practitioner; Admitting Provider Hospitalist; Emergency Provider Emergency Medicine; PCP Student in an Organized Health Care Education/Training Program; Visit Provider Internal Medicine
DX: R41.82 Altered mental status, unspecified (principal); N17.9 Acute kidney failure, unspecified; I12.9 Hypertensive chronic kidney disease with stage 1 through stage 4 chronic kidney disease, or unspecified chronic kidney disease; E11.22 Type 2 diabetes mellitus with diabetic chronic kidney disease; N18.31 Chronic kidney disease, stage 3a; E78.5 Hyperlipidemia, unspecified; T24.002A Burn of unspecified degree of unspecified site of left lower limb, except ankle and foot, initial encounter; J44.9 Chronic obstructive pulmonary disease, unspecified; M10.9 Gout, unspecified; E11.65 Type 2 diabetes mellitus with hyperglycemia; G47.33 Obstructive sleep apnea (adult) (pediatric); Z99.89 Dependence on other enabling machines and devices; K42.9 Umbilical hernia without obstruction or gangrene; R79.89 Other specified abnormal findings of blood chemistry; I70.0 Atherosclerosis of aorta; E87.0 Hyperosmolality and hypernatremia; Z87.891 Personal history of nicotine dependence; Z79.51 Long term (current) use of inhaled steroids; Z79.82 Long term (current) use of aspirin; Z79.84 Long term (current) use of oral hypoglycemic drugs; Z79.4 Long term (current) use of insulin; Z79.899 Other long term (current) drug therapy; Z83.3 Family history of diabetes mellitus; Z82.49 Family history of ischemic heart disease and other diseases of the circulatory system
CPT/HCPCS: 36415; 36600; 70450; 70496; 70498; 70553; 71045; 71250; 71275; 74150; 74175; 80048; 80053; 80069; 80202; 80307; 81001; 81050; 82140; 82550; 82570; 82805; 82948; 83036; 83605; 83735; 84100; 84156; 84300; 84443; 84484; 84540; 85025; 85610; 85730; 85999; 86140; 87040; 92610; 93005; 93306; 93880; 93976; 94640; 95816; 96361; 96365; 96366; 96367; 96375; 96376; 99285; A9270; A9577; G0378; J0360; J0692; J1200; J1644; J1815; J1836; J2060; J2920; J3370; J7030; Q9967